=== PATIENT | female | born 1975 | race Caucasian/White ===

== ENCOUNTER 2020-09-06 12:28 | Inpatient (IN) ==
[2020-09-06 13:52] LABS: Bacteria,Urine Many /HPF (Few); Bilirubin,Urine Negative (Negative); Blood, Urine Moderate mg/dL (Negative); Glucose,Urine (UA) Negative (Negative); Ketones,Urine Negative (Negative); Nitrite,Urine Positive (Negative); Protein,Urine 100 MG/DL; RBC,Urine 19 /HPF (0-4); Squamous Epithelial Cell,Urine Occasional /HPF (0-10); Urine Appearance Slightly Hazy (Clear); Urine Color Amber (Yellow); Urine Specific Gravity 1.009 (1.001-1.035); WBC,Urine 93 /HPF (0-6)
[2020-09-06 13:55] LABS: Basophils # 0.1 10*3/uL (0.0-0.2); Basophils % 0.5 % (0.0-0.8); Eosinophils % 0.1 % (0.00-10.9); Hematocrit 35.2 VOL% (35.7-47.0); Hemoglobin 12.5 GM/DL (12.0-16.0); Immature Granulocytes % 5.4 %; Immature Granulocytes Absolute 0.62 #; Lymphocytes # 0.9 10*3/uL (1.4-4.0); Mean Corpuscular HGB Conc 35.5 GM/DL (32-36); Mean Corpuscular Volume 102.3 FL (87-102); Mean Platelet Volume 11.2 FL (9.6-12.0); Monocytes % 4.5 % (1.7-12.7); Neutrophils % 81.5 % (38.7-73.9); Platelet Count 132 T/CUMM (130-400); Red Blood Count 3.44 MC/CUMM (3.8-5.5); Red Cell Distribution Width 13.3 % (9.3-17.3); White Blood Count 11.4 T/CUMM (4-12)
[2020-09-06 14:04] LABS: Osmolality,Calculated 277.2 MOS/KG (273-304)
[2020-09-06] MEDS ORDERED: SODIUM CHLORIDE 0.9% 1,000 ML IV STA (14:10)
[2020-09-06] MEDS ORDERED: HYDROmorphone 2 MG/1 ML VIAL IV STA (14:10)
[2020-09-06] MEDS ORDERED: KETOROLAC 30 MG/1 ML VIAL IV STA (14:10)
[2020-09-06] MEDS ORDERED: ONDANSETRON 4 MG/2 ML VIAL IV STA (14:10)
[2020-09-06] MEDS ORDERED: LEVOFLOXACIN INJ 750 MG in PREMIX 1 EACH IV STA (14:12)
[2020-09-06] MEDS ORDERED: ACETAMINOPHEN 325 MG TABLET PO PRN (16:09)
[2020-09-06] MEDS ORDERED: DEXTROSE 50% 25 GM/50 ML VIAL IV PRN (16:09)
[2020-09-06] MEDS ORDERED: LACTULOSE 20 GM/30 ML UDCUP PO PRN (16:09)
[2020-09-06] MEDS ORDERED: DOCUSATE SODIUM 100 MG CAPSULE PO PRN (16:09)
[2020-09-06] MEDS ORDERED: hydrALAZINE 20 MG/1 ML VIAL IV PRN (16:09)
[2020-09-06] MEDS ORDERED: GLUCAGON 1 MG VIAL IM PRN (16:09)
[2020-09-06] MEDS ORDERED: SODIUM CHLORIDE 0.9% 2,450 ML IV ONE (16:38)
[2020-09-06] MEDS ORDERED: SODIUM CHLORIDE 0.9% 1,500 ML IV ONE (16:47)
[2020-09-06] MEDS: ONDANSETRON 4 MG/2 ML VIAL IV PRN ×2 (17:59→19:57)
[2020-09-06] MEDS: SODIUM CHLORIDE 0.9% 1,000 ML IV SCH (18:00)
[2020-09-06] MEDS: ENOXAPARIN 40 MG/0.4 ML SYRINGE SUBCUT SCH (18:02)
[2020-09-06] MEDS ORDERED: MAGNESIUM SULF RIDER 4 GM in PREMIX 1 EACH IV PRN (18:15)
[2020-09-06] MEDS ORDERED: POTASSIUM CHLORIDE RIDER 10 MEQ in PREMIX 1 EACH IV PRN (18:15)
[2020-09-06] MEDS ORDERED: MAGNESIUM SULF RIDER 2 GM in PREMIX 1 EACH IV PRN (18:15)
[2020-09-06] MEDS: MORPHINE 4 MG/1 ML VIAL IV PRN (19:51)
[2020-09-06] MEDS: POTASSIUM CHLORIDE 20 MEQ TABLET PO PRN ×2 (19:55→22:06)
[2020-09-06] MEDS: CITALOPRAM 40 MG TABLET PO SCH (22:05)
[2020-09-06] MEDS: ALPRAZolam 0.5 MG TABLET PO PRN (22:06)
[2020-09-06] MEDS: TOPIRAMATE 100 MG TABLET PO SCH (22:06)
[2020-09-07] MEDS: POTASSIUM CHLORIDE 20 MEQ TABLET PO PRN ×2 (00:25→02:17)
[2020-09-07] MEDS: ONDANSETRON 4 MG/2 ML VIAL IV PRN ×2 (00:35→04:48)
[2020-09-07] MEDS: MORPHINE 4 MG/1 ML VIAL IV PRN ×2 (00:36→04:49)
[2020-09-07] MEDS: SODIUM CHLORIDE 0.9% 1,000 ML IV SCH ×3 (02:17→18:02)
[2020-09-07 06:37] LABS: Basophils % 0.4 % (0.0-0.8); Eosinophils # 0.1 10*3/uL (0.0-0.87); Eosinophils % 0.7 % (0.00-10.9); Hematocrit 32.7 VOL% (35.7-47.0); Hemoglobin 11.3 GM/DL (12.0-16.0); Immature Granulocytes % 6.5 %; Immature Granulocytes Absolute 0.48 #; Lymphocytes # 1.1 10*3/uL (1.4-4.0); Lymphocytes % 15.2 % (21.3-54.2); Mean Corpuscular HGB Conc 34.6 GM/DL (32-36); Mean Corpuscular Volume 104.1 FL (87-102); Mean Platelet Volume 11.9 FL (9.6-12.0); Monocytes % 5.1 % (1.7-12.7); Neutrophils % 72.1 % (38.7-73.9); Platelet Count 100 T/CUMM (130-400); Red Blood Count 3.14 MC/CUMM (3.8-5.5); Red Cell Distribution Width 13.4 % (9.3-17.3); White Blood Count 7.4 T/CUMM (4-12)
[2020-09-07 07:07] LABS: Lymphocytes 17 % (20-55); Platelet Estimate Decreased; Segmented Neutrophils 82 % (50-85); Total Cells Counted 100
[2020-09-07 07:08] LABS: Hypochromasia 1+
[2020-09-07 07:12] LABS: Alanine Aminotransferase 23 U/L (13-56); Albumin 2.2 G/DL (3.4-5.0); Alkaline Phosphatase 110 U/L (45-117); Aspartate Amino Transferase 25 U/L (0-37); Blood Urea Nitrogen 32 MG/DL (7-18); Calcium 7.6 MG/DL (8.5-10.1); Estimated Glom Filtration Rate 30 ML/MIN; Glucose 90 MG/DL (74-106); HDL Cholesterol < 10 MG/DL (40-60); Thyroid Stimulating Hormone 0.367 uIU/ml (0.358-3.74); Total Protein 6.2 G/DL (6.4-8.3); Triglycerides 212 MG/DL (2-150); VLDL CHOLESTEROL 42.4 MG/DL
[2020-09-07] MEDS ORDERED: KETOROLAC 15 MG/1 ML VIAL IV ONE (07:30)
[2020-09-07] MEDS: TAMSULOSIN 0.4 MG CAPSULE PO SCH ×2 (08:17→20:54)
[2020-09-07] MEDS: PANTOPRAZOLE 40 MG TABLET PO SCH (08:17)
[2020-09-07] MEDS: TOPIRAMATE 100 MG TABLET PO SCH ×2 (08:17→20:54)
[2020-09-07] MEDS: ALPRAZolam 0.5 MG TABLET PO PRN ×2 (08:24→20:54)
[2020-09-07] MEDS ORDERED: cefTRIAXone 2,000 MG in SYRINGE 1 EACH IV SCH (14:00)
[2020-09-07] MEDS ORDERED: KETOROLAC 30 MG/1 ML VIAL IV ONE ×2 (16:00→23:59)
[2020-09-07] MEDS: ENOXAPARIN 40 MG/0.4 ML SYRINGE SUBCUT SCH (16:01)
[2020-09-07] MEDS: CITALOPRAM 40 MG TABLET PO SCH (20:54)
[2020-09-08] MEDS: SODIUM CHLORIDE 0.9% 1,000 ML IV SCH ×3 (02:11→23:18)
[2020-09-08 06:27] LABS: Basophils % 0.3 % (0.0-0.8); Eosinophils # 0.2 10*3/uL (0.0-0.87); Hematocrit 31.4 VOL% (35.7-47.0); Hemoglobin 10.7 GM/DL (12.0-16.0); Immature Granulocytes % 1.7 %; Immature Granulocytes Absolute 0.13 #; Lymphocytes # 1.9 10*3/uL (1.4-4.0); Lymphocytes % 25.2 % (21.3-54.2); Mean Corpuscular HGB Conc 34.1 GM/DL (32-36); Mean Corpuscular Volume 105.7 FL (87-102); Mean Platelet Volume 10.5 FL (9.6-12.0); Monocytes % 6.7 % (1.7-12.7); Neutrophils % 64.1 % (38.7-73.9); Platelet Count 112 T/CUMM (130-400); Red Blood Count 2.97 MC/CUMM (3.8-5.5); Red Cell Distribution Width 13.5 % (9.3-17.3); White Blood Count 7.5 T/CUMM (4-12)
[2020-09-08 06:38] LABS: Albumin 1.9 G/DL (3.4-5.0); Bilirubin,Total 0.6 MG/DL (0.2-1.0); Osmolality,Calculated 287.8 MOS/KG (273-304); Total Protein 5.6 G/DL (6.4-8.3)
[2020-09-08 06:50] LABS: Eosinophils 1 % (0-10); Hypochromasia 1+; Lymphocytes 23 % (20-55); Microcytosis 1+; Platelet Estimate Decreased; Segmented Neutrophils 70 % (50-85); Total Cells Counted 100
[2020-09-08] MEDS: ONDANSETRON 4 MG/2 ML VIAL IV PRN ×3 (07:48→23:18)
[2020-09-08] MEDS: MORPHINE 4 MG/1 ML VIAL IV PRN ×3 (07:49→23:19)
[2020-09-08] MEDS: TAMSULOSIN 0.4 MG CAPSULE PO SCH ×2 (08:24→21:06)
[2020-09-08] MEDS: PANTOPRAZOLE 40 MG TABLET PO SCH (08:25)
[2020-09-08] MEDS: TOPIRAMATE 100 MG TABLET PO SCH ×2 (08:26→21:06)
[2020-09-08] MEDS: ALPRAZolam 0.5 MG TABLET PO PRN ×2 (08:27→21:06)
[2020-09-08] MEDS ORDERED: TOBRAMYCIN INJ 80 MG in SODIUM CHLORIDE 0.9% 100 ML IV ONE (09:00)
[2020-09-08] MEDS ORDERED: NEOMYCIN/POLYMYXIN IRRIG SOLN 1 ML AMP BLADDERIRR ONE (10:07)
[2020-09-08] MEDS: cefTRIAXone 2,000 MG in SYRINGE 1 EACH IV SCH (11:20)
[2020-09-08] MEDS ORDERED: MIDAZOLAM 2 MG/2 ML VIAL ONE (11:50)
[2020-09-08] MEDS ORDERED: ONDANSETRON 4 MG/2 ML VIAL ONE (11:50)
[2020-09-08] MEDS ORDERED: fentaNYL 100 MCG/2 ML VIAL ONE (11:50)
[2020-09-08] MEDS ORDERED: ACETAMINOPHEN 1,000 MG/100 ML VIAL IV ONE (11:50)
[2020-09-08] MEDS ORDERED: SUCCINYLCHOLINE 200 MG/10 ML VIAL ONE (11:50)
[2020-09-08] MEDS ORDERED: propofoL 200 MG/20 ML VIAL IV ONE (11:50)
[2020-09-08] MEDS ORDERED: LIDOCAINE 2% 5 ML VIAL ONE (11:50)
[2020-09-08] MEDS ORDERED: PHENYLEPHRINE 1 MG/10 ML SYRINGE IV ONE (11:50)
[2020-09-08] MEDS ORDERED: ROCURONIUM 100 MG/10 ML VIAL IV ONE (11:51)
[2020-09-08] MEDS ORDERED: LEVOFLOXACIN INJ 750 MG in PREMIX 1 EACH IV SCH (14:00)
[2020-09-08] MEDS ORDERED: NICOTINE 21 MG/24 HR PATCH TRANSDERM PRN (15:14)
[2020-09-08] MEDS: ENOXAPARIN 40 MG/0.4 ML SYRINGE SUBCUT SCH (17:02)
[2020-09-08] MEDS: CITALOPRAM 40 MG TABLET PO SCH (21:06)
[2020-09-09] MEDS: ONDANSETRON 4 MG/2 ML VIAL IV PRN ×2 (04:06→08:42)
[2020-09-09] MEDS: MORPHINE 4 MG/1 ML VIAL IV PRN ×2 (04:07→08:43)
[2020-09-09 04:49] LABS: Basophils % 0.5 % (0.0-0.8); Eosinophils # 0.1 10*3/uL (0.0-0.87); Hematocrit 30.9 VOL% (35.7-47.0); Hemoglobin 10.5 GM/DL (12.0-16.0); Immature Granulocytes % 4.2 %; Immature Granulocytes Absolute 0.27 #; Lymphocytes # 2.2 10*3/uL (1.4-4.0); Lymphocytes % 34.2 % (21.3-54.2); Mean Corpuscular Volume 105.8 FL (87-102); Mean Platelet Volume 10.2 FL (9.6-12.0); Monocytes % 7.6 % (1.7-12.7); Neutrophils % 51.5 % (38.7-73.9); Platelet Count 109 T/CUMM (130-400); Red Blood Count 2.92 MC/CUMM (3.8-5.5); Red Cell Distribution Width 13.7 % (9.3-17.3); White Blood Count 6.5 T/CUMM (4-12)
[2020-09-09 05:11] LABS: Band Neutrophils 1 % (0-10); Eosinophils 1 % (0-10); Hypochromasia 1+; Lymphocytes 33 % (20-55); Microcytosis Slight; Platelet Estimate Decreased; Segmented Neutrophils 58 % (50-85); Total Cells Counted 100
[2020-09-09 05:16] LABS: Albumin 1.9 G/DL (3.4-5.0); Bilirubin,Total 1.2 MG/DL (0.2-1.0); Calcium 7.9 MG/DL (8.5-10.1); Osmolality,Calculated 281.1 MOS/KG (273-304); Total Protein 5.8 G/DL (6.4-8.3)
[2020-09-09] MEDS: SODIUM CHLORIDE 0.9% 1,000 ML IV SCH (07:30)
[2020-09-09] MEDS: ALPRAZolam 0.5 MG TABLET PO PRN (08:48)
[2020-09-09] MEDS: TAMSULOSIN 0.4 MG CAPSULE PO SCH (08:48)
[2020-09-09] MEDS: POTASSIUM CHLORIDE 20 MEQ TABLET PO PRN (08:48)
[2020-09-09] MEDS: cefTRIAXone 2,000 MG in SYRINGE 1 EACH IV SCH (08:48)
[2020-09-09] MEDS: TOPIRAMATE 100 MG TABLET PO SCH (08:48)
[2020-09-09] MEDS: PANTOPRAZOLE 40 MG TABLET PO SCH (08:48)
[2020-09-09] MEDS ORDERED: POTASSIUM CHLORIDE 20 MEQ TABLET PO ONE (08:54)
[2020-09-09 11:20] VITALS: BP 101/64
== END 2020-09-09 14:14 | disposition home or self-care (01) | DRG 854 ==
LOC: N.ED 12:28 → N.EDINP 16:09 → N.4E 17:10
PROVIDERS: ADMIT Family Medicine; ATTEND Family Medicine